=== PATIENT | male | born 1990 | race Two or more races ===

== ENCOUNTER 2021-12-16 16:38 | Emergency (ER) | payer OTHER ==
[~2021-12-16] VITALS: Ht 165.1 cm; Wt 79.8 kg
[2021-12-16 17:04] LABS: APPEARANCE,URINE SL CLOUDY (CLEAR); BILIRUBIN,URINE MODERATE (NEGATIVE); COLOR,URINE DARK YELLOW (YELLOW); GLUCOSE, URINE (UA) NEGATIVE (NEGATIVE); KETONES,URINE 15 mg/dL (NEGATIVE); LEUKOCYTE ESTERASE ,URINE NEGATIVE (NEGATIVE); NITRATE,URINE NEGATIVE (NEGATIVE); OCCULT BLOOD,URINE NEGATIVE (NEGATIVE); PROTEIN,URINE 100 mg/dL (NEGATIVE)
[2021-12-16 17:19] LABS: RBC,URINE None Seen /HPF (0-1)
[2021-12-16 17:20] LABS: BACTERIA,URINE Few /HPF (None Seen); MUCUS,URINE Few LPF (None Seen); SQUAMOUS EPITHELIAL CELL,UR 0-2 /HPF (0-2); WBC,URINE 0-1 /HPF (0-1)
[2021-12-16 17:33] LABS: BASOPHILS % (AUTO) 0.3 % (0.0-5.0); EOSINOPHILS % (AUTO) 0.1 % (0.0-8.0); HEMATOCRIT 48.6 % (42-54); LYMPHOCYTES % (AUTO) 6.9 % (21.0-51.0); MEAN CORPUSCULAR HEMOGLOBIN 28.9 pg (27.0-33.0); MEAN CORPUSCULAR HGB CONC 33.7 g/dL (32.0-36.0); MEAN CORPUSCULAR VOLUME 85.6 fL (79-99); MONOCYTES % (AUTO) 5.1 % (3.0-13.0); PLATELET COUNT (AUTO) 282 K/uL (130-400); RED BLOOD CELL COUNT(AUTO) 5.68 MIL/uL (4.50-6.20); RED CELL DISTRIBUTION WIDTH 12.8 % (11.0-15.5); WHITE BLOOD COUNT (AUTO) 14.3 K/uL (4.8-10.8)
[2021-12-16 17:43] LABS: CREATININE 2.3 mg/dL (0.5-1.5); POTASSIUM 4.8 mmol/L (3.5-5.1)
[2021-12-16 17:48] LABS: ALBUMIN 4.8 g/dL (3.5-5.0); BILIRUBIN,TOTAL 0.9 mg/dL (0.2-1.0); TOTAL PROTEIN, SERUM 8.8 g/dL (6.0-8.3)
[2021-12-16] MEDS ORDERED: ONDANSETRON 4MG INJ IVP ONE (18:30)
[2021-12-16] MEDS ORDERED: MORPHINE 2 MG SYG IVP ONE (18:30)
[2021-12-16] MEDS ORDERED: 0.9%NACL 1000ML 1,000 ML IV ONE ×2 (18:30)
[2021-12-16] MEDS ORDERED: FAMOTIDINE 20MG VIAL IV ONE (18:30)
[2021-12-16] MEDS ORDERED: PANTOPRAZOLE 40 MG/VIAL IVP ONE (18:30)
[2021-12-16 20:10] VITALS: BP 109/57
[2021-12-16] MEDS ORDERED: ONDA4TAB10 PO (20:49)
[2021-12-16] MEDS ORDERED: FAMO-136 PO (20:49)
[2021-12-16] MEDS ORDERED: OMEP20TA20 PO (20:49)
== END 2021-12-16 21:04 | disposition home or self-care (01) ==
LOC: EDH 16:38
DX: N17.9 Acute kidney failure, unspecified (principal); R11.2 Nausea with vomiting, unspecified; E86.0 Dehydration; Z20.822 Contact with and (suspected) exposure to COVID-19
CPT/HCPCS: 36415; 74176; 80053; 81001; 85025; 87635; 87804 ×2; 96361; 96374; 96375; 99284; C9113; C9803; J2405; J3490; J7030